=== PATIENT | male | born 1945 | race African-American/Black ===

== ENCOUNTER 2022-02-16 09:16 | Inpatient (IN) | payer OTHER ==
[2022-02-16 10:11] VITALS: BMI 23.6
[2022-02-16] MEDS ORDERED: DIPHTH,PERTUSS(ACELL),TET 0.5 ML DISP.SYRIN IM ONE ×2 (11:05→13:31)
[2022-02-16 11:26] LABS: BASO % 0.3 % (0-2.0); EOS % 2.4 % (0-4.5); HEMATOCRIT 25.5 % (35.4-49); HEMOGLOBIN 8.6 GM/dL (11.7-16.9); LYMPH % 21.1 % (8-40); MCH 29.6 pg (25.7-33.7); MCHC 33.6 g/dl (32.0-35.9); MEAN CELL VOLUME 88.1 fl (80-96); MEAN PLT VOLUME 8.6 fl (7.5-11.1); MONO % 7.9 % (3.8-10.2); NEUT % 68.3 % (42.8-82.8); PLATELET COUNT 387 10^3/uL (134-434); RDW 15.5 % (11.9-15.9); WHITE BLOOD COUNT 9.6 K/mm3 (4.0-10.0)
[2022-02-16 11:28] LABS: EPI CELLS 8 /uL (0-25.1); HYALINE CASTS 2 /uL (0-3.1); PH,URINE 6.5 (5.0-8.0); URINE APPEARANCE TURBID; URINE BACTERIA >9,000 /uL (0-1359); URINE BILIRUBIN NEGATIVE (NEGATIVE); URINE COLOR RED; URINE GLUCOSE (UA) TRACE (NEGATIVE); URINE KETONE NEGATIVE (NEGATIVE); URINE LEUK ESTERASE 3+ (NEGATIVE); URINE NITRITE NEGATIVE (NEGATIVE); URINE PROTEIN 3+ (NEGATIVE); URINE RBC 6318 /uL (0-23.9); URINE UROBILINOGEN 0.2 mg/dL (0.2-1.0); URINE WBC 5869 /uL (0-25.8)
[2022-02-16 11:45] LABS: ALBUMIN 2.9 g/dl (3.4-5.0); BLOOD UREA NITROGEN 23.1 mg/dL (7-18); CALCIUM 9.4 mg/dL (8.5-10.1)
[2022-02-16 11:48] LABS: CREATININE 1.9 mg/dL (0.55-1.3)
[2022-02-16 11:50] LABS: BILIRUBIN,TOTAL 0.3 mg/dL (0.2-1); TOT PROT 8.2 g/dl (6.4-8.2)
[2022-02-16] MEDS ORDERED: CEFTRIAXONE 1,000 MG in DEXTROSE 5%-WATER - 50 ML IVPB ONE (12:12)
[2022-02-16] MEDS ORDERED: LIDOCAINE HCL 2% (50ML VIAL) SQ ONE (12:13)
[2022-02-16] MEDS ORDERED: LIDOCAINE HCL 2% (20ML MULTI-DOSE VIAL) ONE (12:47)
[2022-02-16] MEDS ORDERED: CEFTRIAXONE 1 GM/50 ML BAG ONE (13:31)
[2022-02-16] MEDS: SODIUM CHLORIDE 1,000 ML IV SCH (21:42)
[2022-02-17] MEDS ORDERED: BISACODYL 10 MG SUPP.RECT PR PRN (00:20)
[2022-02-17] MEDS ORDERED: MAGNESIUM HYDROX 2400MG/30ML ORAL SUSPENSION 30 ML CUP PO PRN (00:20)
[2022-02-17] MEDS ORDERED: SODIUM PHOSPHATE/NA BIPHOS 133 ML ENEMA RC PRN (00:20)
[2022-02-17] MEDS ORDERED: METOCLOPRAMIDE HCL INJECTION 10 MG/2 ML VIAL IVPUSH ONE (00:59)
[2022-02-17] MEDS ORDERED: METOPROLOL TARTRATE 50 MG TABLET (FP) ONE ×2 (06:33→19:53)
[2022-02-17] MEDS: METOPROLOL TARTRATE 50 MG TABLET (FP) PO SCH ×3 (06:37→21:52)
[2022-02-17 06:45] LABS: BASO % 0.3 % (0-2.0); EOS % 1.2 % (0-4.5); HEMATOCRIT 26.6 % (35.4-49); HEMOGLOBIN 8.8 GM/dL (11.7-16.9); LYMPH % 25.6 % (8-40); MCH 29.4 pg (25.7-33.7); MCHC 32.9 g/dl (32.0-35.9); MEAN CELL VOLUME 89.5 fl (80-96); MEAN PLT VOLUME 8.2 fl (7.5-11.1); MONO % 7.9 % (3.8-10.2); PLATELET COUNT 420 10^3/uL (134-434); RBC 2.98 M/mm3 (4.00-5.60)
[2022-02-17 06:50] LABS: INR 1.08 (0.83-1.09); PROTHROMBIN TIME (PATIENT) 12.4 SEC (9.7-13.0)
[2022-02-17 06:52] LABS: ACTIVATED PTT 33.2 SECONDS (25.2-36.5)
[2022-02-17 07:02] LABS: CALCIUM 9.1 mg/dL (8.5-10.1)
[2022-02-17 07:03] LABS: BLOOD UREA NITROGEN 24.8 mg/dL (7-18); MAGNESIUM 1.9 mg/dL (1.8-2.4)
[2022-02-17 07:06] LABS: CREATININE 1.8 mg/dL (0.55-1.3); PHOSPHOROUS 3.1 mg/dL (2.5-4.9)
[2022-02-17] MEDS ORDERED: amLODIPine BESYLATE 5 MG TABLET (FP) ONE (07:32)
[2022-02-17] MEDS ORDERED: TAMSULOSIN HCL 0.4 MG CAP ONE (07:33)
[2022-02-17] MEDS ORDERED: CEFTRIAXONE 1 GM/50 ML BAG ONE (07:33)
[2022-02-17] MEDS: TAMSULOSIN HCL 0.4 MG CAP PO SCH (09:00)
[2022-02-17] MEDS ORDERED: CEFTRIAXONE 1 GM in DEXTROSE 5%-WATER - 50 ML IVPB SCH (10:00)
[2022-02-17] MEDS: amLODIPine BESYLATE 5 MG TABLET (FP) PO SCH (12:40)
[2022-02-17] MEDS: ATORVASTATIN CA 40 MG TABLET (FP) PO SCH (21:52)
[2022-02-17] MEDS: INSULIN (NOVOLOG) ASPART 100 UNITS/ML 10ML VIAL SQ SCH ×2 (21:52→21:53)
[2022-02-18] MEDS: SODIUM CHLORIDE 1,000 ML IV SCH ×2 (00:39→21:59)
[2022-02-18] MEDS: METOPROLOL TARTRATE 50 MG TABLET (FP) PO SCH ×4 (06:05→21:58)
[2022-02-18] MEDS: INSULIN (NOVOLOG) ASPART 100 UNITS/ML 10ML VIAL SQ SCH ×5 (06:05→22:15)
[2022-02-18] MEDS: TAMSULOSIN HCL 0.4 MG CAP PO SCH (08:59)
[2022-02-18] MEDS: amLODIPine BESYLATE 5 MG TABLET (FP) PO SCH (08:59)
[2022-02-18] MEDS ORDERED: CEFUROXIME AXETIL 500 MG TABLET PO ONE (14:01)
[2022-02-18] MEDS ORDERED: SODIUM CHLORIDE NASAL SPRAY 44 ML BOTTLE NS PRN (20:19)
[2022-02-18] MEDS: ATORVASTATIN CA 40 MG TABLET (FP) PO SCH ×2 (21:42→21:58)
[2022-02-18] MEDS: CEFUROXIME AXETIL 500 MG TABLET PO SCH (21:42)
[2022-02-18] MEDS ORDERED: SUCRALFATE 1 GM/10 ML UNIT DOSE CUPS PO ONE (22:30)
[2022-02-19] MEDS: METOPROLOL TARTRATE 50 MG TABLET (FP) PO SCH ×2 (06:31→14:37)
[2022-02-19] MEDS: INSULIN (NOVOLOG) ASPART 100 UNITS/ML 10ML VIAL SQ SCH ×3 (06:31→18:10)
[2022-02-19] MEDS: CEFUROXIME AXETIL 500 MG TABLET PO SCH (09:08)
[2022-02-19] MEDS: amLODIPine BESYLATE 5 MG TABLET (FP) PO SCH (09:08)
[2022-02-19] MEDS: TAMSULOSIN HCL 0.4 MG CAP PO SCH (09:08)
[2022-02-19 09:59] VITALS: RESP 18
[2022-02-19 18:38] VITALS: BP 146/70; PULSE 81; TEMP 99.1
== END 2022-02-19 18:46 | disposition home or self-care (01) | DRG 690 ==
LOC: JER 09:16 → JERBED 17:49 → J4W 02-17 20:57
PROVIDERS: ADMIT Internal Medicine; ATTEND Internal Medicine
DX: N39.0 Urinary tract infection, site not specified (principal); S02.32XA Fracture of orbital floor, left side, initial encounter for closed fracture; S02.92XA Unspecified fracture of facial bones, initial encounter for closed fracture; E78.5 Hyperlipidemia, unspecified; R55 Syncope and collapse; S02.2XXA Fracture of nasal bones, initial encounter for closed fracture; I12.9 Hypertensive chronic kidney disease with stage 1 through stage 4 chronic kidney disease, or unspecified chronic kidney disease; N18.30 Chronic kidney disease, stage 3 unspecified; B96.1 Klebsiella pneumoniae [K. pneumoniae] as the cause of diseases classified elsewhere; E11.22 Type 2 diabetes mellitus with diabetic chronic kidney disease; J34.2 Deviated nasal septum; N40.0 Benign prostatic hyperplasia without lower urinary tract symptoms; D49.4 Neoplasm of unspecified behavior of bladder; S01.112A Laceration without foreign body of left eyelid and periocular area, initial encounter; D72.829 Elevated white blood cell count, unspecified; R29.6 Repeated falls; W18.39XA Other fall on same level, initial encounter; Y92.098 Other place in other non-institutional residence as the place of occurrence of the external cause
CPT/HCPCS: 36415; 70450-TC; 70486-TC; 71045-TC-FY; 72125-TC; 80048; 80053; 81003; 82962; 83605; 83735; 84100; 84484; 85025; 85610; 85730; 87086; 87186; 90715; 93005; 93010; 93880-TC; 97116-GP; 97161-GP; 99285-25; C9803-CS; U0003; U0005